=== PATIENT | male | born 1965 | race Caucasian/White ===

== ENCOUNTER 2016-06-16 10:19 | Outpatient (CLI) | payer OTHER | END 2016-06-16 10:20 | disposition home or self-care (01) | DX: J98.11 Atelectasis (principal) ==

== ENCOUNTER 2016-06-21 09:33 | Outpatient (CLI) | payer OTHER | END 2016-06-21 09:34 | disposition home or self-care (01) | DX: R06.09 Other forms of dyspnea (principal) ==

== ENCOUNTER 2017-01-20 10:03 | Outpatient (CLI) | payer OTHER ==
--- NOTE | 2017-01-20 22:27 | CONSULTATION NOTE ---
Palliative Care Consultation - Referral Referring Provider: Dr. 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 Has seen neurologist, franchise manager, and project manager finance regarding impending PEG placement. His father had ALS and at age 42, patient was 17 at the time, remembers much of the struggle, he in the hospital though was cared for at home for about 2 years. He was having difficulty with his breathing in March and was seen by PCP, told to loose weight and lost intentionally about 25 pounds. He continued to decline, saw a heel seat fitter machine who was very concerned and attempted to get him into a neurologist urgently. Unfortunately related to his desperation and progressive symptoms with dysphagia, neck weakness, more difficulty breathing he went to the [facility] ED, saw the neurologist and given Dx. His respiratory status continues to decline, feeling some improvement and support with new bipap at night, literally was not able to lay down as could not breath. He has dyspnea on exertion, and needs to pace self. 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 He is feeling overwhelmed as he has had to give up things of importance to him, riding motorcycle, and now declining ability to work. He has seen GI for PEG placement, feels can currently delay this, though of concern for anesthesia for procedure in the future. He has seen Danielle NG, and plan for follow up. Medical/Surgical History - Past Medical History Cardiovascular: reports: None Respiratory: reports: Other (recently obtained BiPAP has helped with sleep at night and breathng; was unable to lay flat without feeling he was suffocating) Neuro: reports: Other (new dx of ALS with bulbar symptoms) Endocrine/Autoimmune: reports: None GI: reports: Other (dysphagia; tires with chewing) : reports: None HEENT: reports: None Psych: reports: Depression, Anxiety Musculoskeletal: reports: Other (upper extremity weakness with ALS) Derm: reports: None MRSA Hx?: No - Substance History Use: Uses substance without health or social issues: NONE Social History - Living Situation Living arrangement: At home Living Situation: With family ( Corrine; to start caregiving training for employment, hoping to learn how to take care of him in future; have 4 year old granddaughter living with them, another daughter in [place] but with new baby) Support System: patient grew up in this community; many friends willing to help Family History - Family History Family History: Mother: Alive and Well, Father: (42 of ALS) Medications/Allergies - Medications Home Medications: Ambulatory Orders Medication Instructions Recorded Confirmed Diclofenac Sodium [Diclofenac 2 gm TOP QID PRN 01/27/17 01/27/17 Sodium] Riluzole 50 mg PO BID 01/27/17 01/27/17 - Allergies Allergies/Adverse Reactions: Allergies Allergy/AdvReac Type Severity Reaction Status Date / Time No Known Drug Allergies Allergy Verified 01/24/17 22:50 Review of Systems - Constitutional Constitutional: reports: Fatigue, Weight loss (206.4) - Eyes Eyes: denies: Blurred vision, Vision loss - Ears, Nose & Throat Ears, Nose & Throat: reports: Other (tires with chewing; dysphagia-has to eat slow; managing secretions currently). denies: Hearing loss - Cardiovascular Cariovascular: reports: Exertional dyspnea, Decr. exercise tolerance, Orthopnea (improved with bipap). denies: Chest pain - Respiratory Respiratory: reports: Orthopnea, SOB at rest, SOB with exertion. denies: Cough - Gastrointestinal Gastrointestinal: reports: Poor appetite (tiring to eat). denies: Constipation , Diarrhea - Genitourinary Genitourinary: denies: Incontinence - Musculoskeletal Musculoskeletal: reports: Stiffness, Limited range of motion - Integumentary Integumentary: reports: Dryness - Neurological Neurological: reports: General weakness, Focal weakness (neck/shoulder/upper arms;), Slurred speech (speech quiet) - Psychiatric Psychiatric: reports: Depression, Anxiety. denies: Suicidal - Endocrine Endocrine: reports: Other (neg hypothyroidism/diabetes) - Hematologic/Lymphatic Hematologic/Lymphatic: denies: Anemia - All Other Systems All Other Systems: reports: Reviewed and negative Physical Examination - Vital Signs Pulse Rate: 86 Respiratory Rate: 18 Blood Pressure: 140/99 - Physical Exam General Appearance: positive: Mild distress, Anxious Eyes Bilateral: positive: Normal inspection ENT: positive: Other (tongue with atrophied ALS pattern; poor rom) Neck: positive: Trachea midline, Other (struggling with posture of upright) Cardiovascular: positive: Regular rate & rhythm Abdomen: positive: Nml bowel sounds, No distention Skin: positive: No symptoms Extremities: positive: No pedal edema, Other (limited strength upper arms; fine motor impacted) Neurologic/Psychiatric: positive: Oriented x3, Weakness, Slurred/abnml speech, Depressed mood/affect Palliative Care - POLST Patient has POLST: No Pain: Pain worsening (bilateral should pain;) Drowsiness: Moderate (4-6) (moderate fatigue; able to only tolerate working 3/4 of day) Nausea: None Anxiety: Mild (1-3) (worried about how quickly things are changing) Dyspnea: Moderate (4-6) Anorexia: Mild (1-3) (very burdensome to chew) Insomnia: Sleep improved (with bipap) Feelings of wellbeing/Perceived Quality of Life: Worsening Performance Status: Patient having increased difficulty with dressing; fine motor; washing hair-any tasks that require over head reaching - Palliative Care Discussion: Patient aware of the seriousness of his illness; trying to weigh benefits and burdens of transitioning to disability with financial stressors pending. 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 attempting to try and put the "pieces" together to be able to pre- plan as much as possible, including learning to do hands on care. She is pursuing employment as a caregiver. Patient not wanting at end of life extended suffering; at this point weighting other than bipap respiratory support. His understanding was he did not need to urgently have tube places. Has had appointment with ST with recommendations, but noticing already more difficulty with meds/tiring to chew/keeping head positioned because of fatigue. Discussed the role of palliative care in support of advanced care planning; need to complete DPOA first, can continue to address as progresses. Also in the assistance of symptom management. Expressing feelings of grief and loss. Impression and Recommendations - Palliative Care Impression: This is a 51 year old recently diagnosed with ALS with bulbar symptoms, has experienced rapid progression, currently establishing care with various specialists. Palliative care to assist with advanced care planning and symptom management. Recommendations/Counseling Done: 1. Depression, was prescribed antidpressant by PCP, had not started yet. Counseling regarding threshold and indications/benefits for use. Counseling for normalizing feelings of grief and loss. Not interested in support group, but possible on line, will send resources. 2. ALS. Encouraged use of collar for energy conservation, has tended not to use. Has follow up with multiple specialists, trying to gather as much information for future decisions relating to disease progression and care, has been overwhelming and felt fragmented. 3. Advanced care planning, have documents; explained various components/forms. Recommended break it down with first on DPOA, would fall to but would be good to have "back up". Will have [facility] call , phone support and offer visit as needed. Set appointment in one month, will have more information and better able to focus on next steps. Time Spent: 75 minutes spent in counseling regarding living with serious illness, normalizing grief response and introduced advanced car eplanning.
== END 2017-01-20 10:04 | disposition home or self-care (01) ==
LOC: PC 10:03
PROVIDERS: ATTEND Internal Medicine
DX: Z51.5 Encounter for palliative care (principal); G12.21 Amyotrophic lateral sclerosis; F32.9 Major depressive disorder, single episode, unspecified; R53.83 Other fatigue; R13.10 Dysphagia, unspecified; R53.1 Weakness; R06.02 Shortness of breath
CPT/HCPCS: 99205

== ENCOUNTER 2017-03-03 08:31 | Outpatient (CLI) | payer OTHER ==
--- NOTE | 2017-03-03 17:42 | CONSULTATION NOTE ---
Palliative Care Follow Up - Referral Referring Provider: Dr. Yara Nam Time of Visit: [id number] Referral setting: [facility] [place] Referral Reason: ALS - Information Sources Records reviewed: Previous records reviewed History/Review of Systems obtained from: Patient, Family ( Corrine) Exam limitations: No limitations - History of Present Illness Update Brief HPI Update: This is a ariana 51-year-old gentleman recently diagnosed with ALS with bulbar symptoms, has been having a fairly rapid decline. His initial diagnosis was at the beginning of the year, he had presented with fatigue, shortness of breath, proximal upper extremity weakness and was put on a BiPAP at night around mid November. At that point in time he was already presenting with a FVC of 36% in the sitting position and 17% in the supine position. Of note he was having symptoms back in March 2016. Despite his father dying of ALS at age 42, his official diagnosis did not come to months later. I initially saw him over a month ago, he is feeling somewhat overwhelmed with all the specialists, our agreement had been to follow-up after he had seen next round of neurology, gastrenterology and patient accounts manager. He had canceled all those appointments this week. He has had continued decline, increased difficulty with holding his head up, increase orthopnea and difficulty with breathing at night, despite the BiPAP. He is still weight neutral, is having some difficulty with his oropharyngeal dysphagia. He is hoping to delay placement of a PEG as long as possible. He presents today with fairly high symptom burden. He reports increased pain in his neck as 7 out of 10. His fatigue at a 5 out of 10. He is feeling quite anxious and overwhelmed. He had not started his antidepressant, is feeling that really it is his situation, not his mood that is giving him problems. 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 Despite counseling his other visits, he is willing to discuss quality of life issues as well as prioritizing his medical needs. He also is concerned with some upper respiratory symptoms, is to see PCP after our visit. 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 He is recognizing though that he is going to need to stop working fairly soon. He does have supportive friends and family. He has a new grandbaby, that he is very excited about. His is quite supportive but feeling overwhelmed as well. Medications/Allergies - Medications Home Medications: Ambulatory Orders Medication Instructions Recorded Confirmed Diclofenac Sodium [Diclofenac 2 gm TOP QID PRN 01/27/17 01/27/17 Sodium] Riluzole 50 mg PO BID 01/27/17 01/27/17 HYDROcod/ACETAM 5/325 [[place] 5/325] 0.5 - 1 tab PO Q6HR PRN 03/03/17 03/03/17 Meloxicam 7.5 mg PO DAILY 03/03/17 03/03/17 Triamcinolone 0.1% Cream [Kenalog 1 applic TOP BID PRN 03/03/17 03/03/17 0.1% Cream] - Allergies Allergies/Adverse Reactions: Allergies Allergy/AdvReac Type Severity Reaction Status Date / Time No Known Drug Allergies Allergy Verified 01/24/17 22:50 Review of Systems - Constitutional Constitutional: reports: Fatigue, Other (staying weight neutral but "bored" with diet) - Eyes Eyes: denies: Vision loss - Ears, Nose & Throat Ears, Nose & Throat: reports: Postnasal drainage, Hoarseness, Other (excessive salivation). denies: Hearing loss - Cardiovascular Cardiovascular: reports: Decr. exercise tolerance. denies: Chest pain - Respiratory Respiratory: reports: Cough (reports clear; difficult cough effort), Orthopnea, SOB at rest, SOB with exertion. denies: Hemoptysis - Gastrointestinal Gastrointestinal: reports: Constipation, Rectal bleeding. denies: Nausea, Reflux/heartburn - Genitourinary Genitourinary: denies: Incontinence - Musculoskeletal Musculoskeletal: reports: Muscle pain, Muscle aches, Stiffness (neck), Muscle weakness - Integumentary Integumentary: reports: Rash (new rash with scattered lesions) - Neurological Neurological: reports: General weakness (upper extremity; difficult with raising arms only not fine motor; no lower extremity weakness) - Psychiatric Psychiatric: reports: Depression (did not start on antidepressant), Anxiety ( very anxious about impending decline; business stressors/finances) - Endocrine Endocrine: denies: Diabetes type 2, Hypothyroidism - Hematologic/Lymphatic Hematologic/Lymphatic: denies: Recurrent infections - All Other Systems All Other Systems: reports: Reviewed and negative Physical Exam - Vital Signs Pulse Rate: 86 Respiratory Rate: 20 O2 Saturation: 94 (RA at rest) Blood Pressure: 150/92 - Physical Exam General Appearance: positive: Alert, Mild distress Eyes Bilateral: positive: Normal inspection ENT: positive: Other (moist with excessive saliva) Neck: positive: Trachea midline, Other (fatigues even during exam of neck; has not been wearing brace) Cardiovascular: positive: Regular rate & rhythm Respiratory: positive: Diminished in bases, Other (difficult in taking deep breath; needing to use accessory muscles). negative: Wheezes, Rales, Rhonchi Abdomen: positive: Non-tender, Soft, Nml bowel sounds Skin: positive: Rash (scattered areas of 1-2 cm rash; not weeping; itching or s/ s infection;) Extremities: positive: No pedal edema Neurologic/Psychiatric: positive: Oriented x3, Mood/affect nml, Slurred/abnml speech (voice weak some change in quality;) Palliative Care - POLST Patient has POLST: No Pain: Pain worsening, Location (shoulders/neck;), Severity (7/10 worsening through day), Comment (has used advil with some relief) Tiredness/Fatigue: Moderate (4-6) Drowsiness/Sedation: None Nausea: None Depression: Moderate (4-6) Anxiety: Moderate (4-6) Dyspnea: Moderate (4-6) Anorexia: None Sleep: Variable sleep pattern Constipation: Yes, Unmanaged Feelings of wellbeing/Perceived Quality of Life: Fair, Worsening Performance Status: Patient with no difficulty ambulating, has increasing difficulty lifting his arms, dressing, no fine motor movement issues. He is getting more distressed as far as trying to work, he does have to crawl around, concerned about on-the- job accident. That showering is become challenging, is unable to put his arms up to wash his hair, and as having more difficulty adapting to his progressive loss of function. - Palliative Care Discussion: Patient is aware the seriousness of his illness, he is feeling somewhat overwhelmed by all the frequent visits, and chose not to follow-up this week. In review of his symptoms, we did discuss and prioritizing follow-up, he is describing increased difficulty with breathing, and may need BiPAP settings adjusted. Strongly suggested his first priority is getting to patient accounts manager. He currently is weight neutral, part of it is just figuring out food and fluids that are interesting, agreed he could delay remarketing manager. I did suggest though asking the patient accounts manager as far as the concern about anesthesiology in the future for PEG tube. I also strongly suggested that they reschedule his familial and genetic testing, he does have 2 daughters, and this information may not be available after his . I suggested this might be something of Legacy to assist his family in the future. His distress came also with the speech therapist suggesting he is going to need a communication tool and needs to start working on this. He does actually have quite a good visual having watched his father of this disease and felt this was too soon. Given patient's local relationship with Danielle Ivory, I suggested he follow-up with her when it felt more appropriate. He does have referral for OT as well, we discussed the challenges he is experiencing with dressing and meeting his ADLs, recommended he follow-up with OT after he gets back from his vacation. Counseling regarding adjustment to illness, feelings of grief and loss, and normalizing his current response to his situation. We did discuss though needing to prepare for the future. They are planning a vacation to the [employer], as part of the bucket list. He feels that he can refocus after they have met this goal. Did initiate conversation regarding advanced directives, is Corrine does feel that she would be able to make decisions on his behalf if needed. Introduce the role of POLST, though currently is not ready for a DNAR. We did discuss at some point at that transition time would reintroduce this. He is quite clear though he does not want ventilatory support for end of life, and nothing to prolong his suffering when his time comes. Impression and Recommendations - Palliative Care Impression: This is a 51-year-old gentleman with ALS and bulbar symptoms, is continued to have rapid progression. Patient presents today with increased pain, constipation, depression, and dyspnea. Palliative care to focus on symptom management as well as advanced care planning. Recommendations/Counseling Done: 1. Neck pain. This is most likely related to muscle tension and positioning. Has had some response to just plain Advil. We will go ahead and order meloxicam 7.5 mg daily to take with food, will increase to 15 mg if no response within week. Did also order hydrocodone 5 mg/acetaminophen 325 mg half to 1 tab every 6 hours as needed for severe breakthrough pain. Cautioned as far as constipation, sedation, and nausea. Did encourage use of neck brace, patient has been hesitant to use it, though this would provide some relief. 2. Constipation. Patient with intermittent constipation, having difficulty with straining, most likely related to his underlying disease process. Was instructed to initiate MiraLAX 17 g 1/2-1 capful daily with a goal of a regular soft bowel movement at least daily or every other day. Instructed on use of senna if patient having difficulty with infrequent bowel movements. 3. Rash. Patient with scattered patches of rash, no pustules, not painful but is slightly itchy. Will go ahead and start some triamcinolone 0.1% apply twice a day as needed until clear. 4. Dyspnea. Patient does need his BiPAP settings per his report adjusted. Did recommend patient follow-up with patient accounts manager, would be helpful to have FEV readings as well as recommendations for future PEG tube placement. Patient with cold symptoms, mostly post nasal, cough clear though poor effort, worried about progressive infection/pneumonia, no fever or chills. Recommended antihistamine and flonase, will see PCP. 5. Dysphagia. Patient does have some difficulty with pills, instructed to take with yogurt or pudding, may also crush. Has decreased his pill burden as far as his supplements. Currently remaining weight neutral, does have recipe book from speech therapist encouraged to try and increase variety. He is using supplemental protein drinks and tolerating without difficulty. 6. ALS. Patient is somewhat overwhelmed by the multidisciplinary team, frequent visits required, and distressed at pending decline. Did perform the ALS functional rating scale. Currently he scores out at 36. Will do this frequently on visits to marked decline. I did prioritize as far as follow-up patient accounts manager, neurologist, and remarketing manager as moves closer to needing PEG tube feeding. He is willing to accept PEG feeding at this point in time, but would like to delay implementation as long as possible. He would not like to be respiratory dependent on a ventilator. 5. Advanced care planning. Did recommend to finish DPOA, it does fall to . I did discuss quite frankly as he was no longer able to make decisions if his Corrine had the information that she needed. They do feel like they have had enough conversations, that she does understand his values, and would be able to speak appropriately for him. I did introduce the POLST, currently patient is not ready for DNA R, but did state quite clearly would not want ventilatory ventilatory support long-term but would consider it for short-term reversible process. We discussed weighing benefits and burdens as we move forward regarding these decisions, and is good to have continued on conversations and understand decisions facing them. This is where it is helpful to get her elicit information from their specialists as well as support for future decisions. Also recommended related to patient's decline to prioritize line up paperwork and affairs to transition to SSI Disability, and consider related to safety wrapping up business as worried about him hurting himself with his increasing deficits. Time Spent: 60 minutes with greater than 50% of this done in counseling regarding opioid use and safety, management of multidisciplinary team, making priorities, recommendations for transitioning to as SSI disability, and anticipatory guidance
== END 2017-03-03 08:32 | disposition home or self-care (01) ==
LOC: PC 08:31
PROVIDERS: ATTEND Nurse Practitioner Adult Health
DX: Z51.5 Encounter for palliative care (principal); G12.21 Amyotrophic lateral sclerosis; M54.2 Cervicalgia; K59.00 Constipation, unspecified; R21 Rash and other nonspecific skin eruption; R06.00 Dyspnea, unspecified; R13.10 Dysphagia, unspecified; Z79.891 Long term (current) use of opiate analgesic; Z79.899 Other long term (current) drug therapy; R06.02 Shortness of breath
CPT/HCPCS: 99215

== ENCOUNTER 2017-04-07 08:27 | Outpatient (CLI) | payer OTHER ==
--- NOTE | 2017-04-07 14:09 | CONSULTATION NOTE ---
Palliative Care Follow Up - Referral Referring Provider: Dr. Yara Nam Time of Visit: [id number] Referral setting: [facility] [place] Referral Reason: ALS - Information Sources Records reviewed: Previous records reviewed History/Review of Systems obtained from: Patient, Family ( Corrine present for visit) Exam limitations: No limitations - History of Present Illness Update Brief HPI Update: This is a airana 50-year-old gentleman who was diagnosed with ALS with bulbar symptoms, having a fairly rapid decline. His initial official diagnosis is beginning of this year, did have symptoms previous to this. Since her last meeting he has had 2 stop working, he is presenting with now significant increase upper extremity weakness needing support for dressing, and eating is becoming very problematic. He has so far remained weight neutral at 200 though he feels like he is spending all his time trying to address this need. He has noted some increase early ambulation difficulties, with some weakness in his legs. He has since we last meet also met with the lens grinder rough. His PFTs from 03/31/2017 declined only slightly from January with a FVC percent predictive of 40-34; an FEV1 from 42-36. They had at that point in time also initiated conversation regarding the physician orders for life-sustaining treatment or [facility] [address] form. He has also been feeling more depressed and initiated his antidepressant though is unhappy with the sexual dysfunction side effects. A discussion today focused on advanced care planning, is increasing symptom burden regarding pain, anxiety, depression, and fatigue. His psychosocial issues include needing to apply for Social Security disability, asked tablets new housing, and acknowledging his fairly rapid decline. He and his though did make it to the [facility] for their vacation, and found this very restorative and a positive over this last month. Social History - Living Situation Living arrangement: At home Living Situation: With spouse/s.o., With family (daughter recently moved home to be with the granddaughter age 5 who had been living with them. They are all living in an RV 5th wheel.) Support System: They are quite grateful they do have a lead on housing, so they will be able to move and until the beginning of May. It is on the same property and will have 2 bedrooms which will be of much help to them. Medications/Allergies - Medications Home Medications: Ambulatory Orders Medication Instructions Recorded Confirmed Diclofenac Sodium [Diclofenac 2 gm TOP QID PRN 01/27/17 04/07/17 Sodium] Riluzole 50 mg PO BID 01/27/17 04/07/17 HYDROcod/ACETAM 5/325 [[place] 5/325] 5 - 10 mg PO Q4HR PRN 03/03/17 04/07/17 Meloxicam 7.5 mg PO DAILY 03/03/17 04/07/17 Triamcinolone 0.1% Cream [Kenalog 1 applic TOP BID PRN 03/03/17 04/07/17 0.1% Cream] Sildenafil Citrate [Viagra] 25 mg PO PRN PRN 04/07/17 04/07/17 buPROPion [Wellbutrin Sr] 150 mg PO DAILY 04/07/17 04/07/17 - Allergies Allergies/Adverse Reactions: Allergies Allergy/AdvReac Type Severity Reaction Status Date / Time No Known Drug Allergies Allergy Verified 01/24/17 22:50 Review of Systems - Constitutional Constitutional: reports: Fatigue, Weakness, Night sweats, Weight stable (200 but with great effort for eating) - Eyes Eyes: reports: Vision loss, Corrective lenses - Ears, Nose & Throat Ears, Nose & Throat: reports: Other (increase difficulty with secretions pooling and managing; swallowing more laborious; no choking but tires easily;) - Cardiovascular Cardiovascular: reports: Exertional dyspnea, Decr. exercise tolerance, Orthopnea (got BIPAP settings adjusted with some improvement; to get "pillows" nasal vs mask for comfort) - Respiratory Respiratory: reports: SOB at rest, SOB with exertion, Other (needing to use accessory muscles for breathing finding very tiring) - Gastrointestinal Gastrointestinal: reports: Early satiety. denies: Constipation - Genitourinary Genitourinary: reports: Sexual dysfunction (requesting alternative antidepressant and support) - Musculoskeletal Musculoskeletal: reports: Muscle pain (mostly in neck area; has improved some with retiring from work), Stiffness, Muscle weakness (upper extremities cannot dress self; difficulty with bathing; cannot support utensils for eating) - Integumentary Integumentary: reports: Dryness - Neurological Neurological: reports: General weakness, Other (speech more difficult to understand) - Psychiatric Psychiatric: reports: Depression (feelings of loss and distress with needing to stop working; is identity;) - Hematologic/Lymphatic Hematologic/Lymphatic: denies: Recurrent infections - All Other Systems All Other Systems: reports: Reviewed and negative Physical Exam - Vital Signs Pulse Rate: 72 Respiratory Rate: 16 O2 Saturation: 93 Blood Pressure: 127/68 - Physical Exam General Appearance: positive: Mild distress, Anxious Eyes Bilateral: positive: Normal inspection ENT: positive: ENT inspection nml Neck: positive: Trachea midline, Stiff neck Cardiovascular: positive: Regular rate & rhythm Respiratory: positive: Diminished in bases, Other (using accessory muscles to deep breath). negative: Wheezes, Rales, Rhonchi Abdomen: positive: Soft Skin: positive: No symptoms Extremities: positive: No pedal edema, Other (unable to lift arms off chair arms ; small amount lateral abduction sustained movement noted; reports starting some lower extremity weakness). negative: Full ROM Neurologic/Psychiatric: positive: Oriented x3, Weakness, Depressed mood/affect, Other (voice quiet). negative: Motor nml Palliative Care - POLST Patient has POLST: Yes POLST Status: DNR, Limited Interventions (antibiotics if life can be prolonged; TF when need and cannot swallow) Pain: Pain improved, Location (neck and shoulder area), Comment (hydrocodone/ apap helps "some" not using more than once a day not needing with less activity) Tiredness/Fatigue: Severe (7-10) Drowsiness/Sedation: None Nausea: None Depression: Severe (7-10) Anxiety: Severe (7-10) Dyspnea: Severe (7-10) Anorexia: None Sleep: Variable sleep pattern Constipation: Yes, Managed Feelings of wellbeing/Perceived Quality of Life: Fair, Worsening Performance Status: Patient having increasing difficulties with dressing, Cannot lift her maneuver his arms to be able to put on shirts and/or codes. He is having difficulty lifting and feeding himself because of his lack of arm strength. He does need assistance with showering as well and washing his hair. His energy and fatigue now are impacting his ability to manage his day-to-day activities, and has had to stop working both because of energy and safety concerns. 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 - Palliative Care Discussion: There was a fairly long extensive conversation regarding advanced care planning , he had initiated this with his lens grinder rough including the choice of DNAR and limited interventions. He had not made any decisions at that point in time regarding his tube feedings, he is very depressed and distressed with the upcoming decline in his current loss of his identity that is very much connected with his work. In conversation we reviewed the benefits and burdens of moving forward with a PEG feeding tube. Given the patient's recent speech therapy evaluation and swallow eval that shows so he is not aspirating he is having pooled secretion in his epiglottis I suspect should move forward on this sooner than later. They were somewhat frustrated with information they received from the lens grinder rough, I did agree to further define this for them. In trying to decide though "when" to get the PEG tube regarding concerns for anethesiology.He is having more trouble with pills, this is concern and particularly in looking forward for comfort management. I suspect the changes are happening fairly quickly and are somewhat overwhelming, particularly to add this level of support. I did share though that in the context of his longer term goals, which is to have a peaceful and respectful at home, we are going to need away to support him both with medications and until he is ready to transition to end-of-life for food and fluids. At this point in time he is not wanting to consider ventilatory support, he has found it much more comfortable though with the improved BiPAP settings. Impression and Recommendations - Palliative Care Impression: This is a 51-year-old gentleman with ALS who continues to decline, he is showing increased upper extremity weakness and bulbar symptoms increased fatigue and difficulty with eating, but he remains weight neutral this is been somewhat overwhelming to keep up with calories and fluids. He is having increased trouble with swallowing medications though denies significant choking. He is starting to feel some lower extremity weakness. The symptom burden remains fairly high with pain in his neck, severe fatigue, increasing depression, anxiety, and perceived worsening quality of life. His goal is to focus on managing his symptoms and stain as independent as possible for as long as possible, as well preparing for his end of life. Recommendations/Counseling Done: 1. Neck pain, multifactorial in origin most likely related to muscle tension and positioning. He is taking the meloxicam 7.5 mg daily with some relief. For intermittent severe pain he has used the hydrocodone/acetaminophen been 5 mg /3 and 25 mg but perceives very little relief. His pain is improved since he has stopped working, and has not really used the neck brace. Reviewed the principles of pain management again, reviewing most likely he needs a higher dose of the hydrocodone to get relief, I did provide prescription for liquid with encouragement to titrate to comfort. At this point in time he still only needing intermittently will continue to monitor. 2. Constipation. He is using MiraLAX with improvement. 3. Depression, multifactorial including grief and loss of employment. He did initiate the citalopram with some improvement of his depressive symptoms but disliked that this the erectile dysfunctional component of this. Prescribed Wellbutrin which has less side effects for rectal dysfunction, and added prescription of Viagra with instructions. Reviewed the need to continue with intimacy for as long as possible given this is an important part of the relationship. 4. Functional decline. Initiated conversation again regarding speech and occupational therapy, Corrine would really like for him to try and see if there is anything to improve his quality of life are suggestions or equipment. Patient remains reluctant in the context of "what are the going to be able to do for me" as far as spending the time and investment in something that is not going to be of help. Compromise was made that I would contact the speech and occupational therapist, specifically asking what approaches and things that might be of help and then he can decide. Message left both are Danielle Ivory regarding above as well as trying to identify he may see him outpatient for occupational therapy. 5. Dysphasia. Patient is at high risk for aspiration, we did discuss what this risk was and why it was so. Patient with some understanding of his illness , but does need some interpretation of medical jargon. Expressed my concern regarding difficulty swallowing pills, effort and fatigue with eating, and agreed to follow-up with lens grinder rough regarding recommendations for PEG tube and anesthesiology. 6. Financial stressors. Patient feeling overwhelmed and not even knowing where to start for SSI disability, they do understand that it is a process but would like some direction. Will recheck out to our social workers and see if any coaching or enlightenment can be provided. Given his disease status they should be able to get it in a fairly short period of time, is just gathering the information. 7. Advanced care planning. Patient and had multiple questions again about the POLST form and implications regarding this. They had not brought the previous copy, we did redo this to include his written goals which include focus on quality treat reversible conditions spend time with family and end-of- life a comfortable respectful at home with hospice. We also spent quite a bit of time weighing benefits and burdens of tube feedings as well as issue of antibiotics particularly end of life. 8. ALS. 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 He has followed up with the lens grinder rough, most likely will have him follow-up with chucker. Unfortunately for genetic counseling that person is no longer available, will need to go out of network. There is a clinic at [facility] I will get the appropriate information. We also discussed some of the clinical trial studies he has access to, he may follow-up on some of the more simple ones. Also address his questions regarding medication and supplements, and long -term goals regarding this. He currently has put them all on hold, because of swallowing issues. Time Spent: 65 minutes with greater than 50% of this done in counseling and coordination of care regarding patient's complexity of multiple issues, symptom management, advanced care planning and anticipatory guidance.
== END 2017-04-07 08:28 | disposition home or self-care (01) ==
LOC: PC 08:27
PROVIDERS: ATTEND Nurse Practitioner Adult Health
DX: Z51.5 Encounter for palliative care (principal); G12.21 Amyotrophic lateral sclerosis; F32.9 Major depressive disorder, single episode, unspecified; R13.10 Dysphagia, unspecified; R53.1 Weakness; R53.83 Other fatigue; F41.9 Anxiety disorder, unspecified; K59.00 Constipation, unspecified; R37 Sexual dysfunction, unspecified; T43.295A Adverse effect of other antidepressants, initial encounter; Z66 Do not resuscitate; M50.90 Cervical disc disorder, unspecified, unspecified cervical region
CPT/HCPCS: 99215

== ENCOUNTER 2017-05-17 09:32 | Outpatient (CLI) | payer MEDICAID ==
--- NOTE | 2017-05-17 13:45 | CONSULTATION NOTE ---
Palliative Care Follow Up - Referral Referring Provider: Dr. 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 His initial diagnosis is beginning the year, he is currently on BiPAP at night. Patient does report some increased changes and noted decline, with more difficulty with turning and positioning in bed, is wearing CPAP through the night, increased secretions noted but mostly at nighttime but managing., Is experiencing some increased difficulty with swallowing, and also having more difficulty getting him from kneeling to standing. He also is needing more assistance with his ADLs. These and review are quite overwhelming to him.Patient also having increased trouble meeting nutritional needs, currently has PEG tube scheduled for beginning of June, remains fairly resistant to this.Goal of palliative care is to continue to meet and address quality of life issues as well as anticipatory guidance. ALS Functional Rating Scale-Revised with same scoring of 31/48 from last visit. Social History - Living Situation Living arrangement: At home Living Situation: With spouse/s.o. Medications/Allergies - Medications Home Medications: Ambulatory Orders Medication Instructions Recorded Confirmed Riluzole 50 mg PO BID 01/27/17 04/07/17 HYDROcod/ACETAM 5/325 [[place] 5/325] 5 - 10 mg PO Q4HR PRN 03/03/17 04/07/17 Meloxicam 7.5 mg PO DAILY 03/03/17 04/07/17 Triamcinolone 0.1% Cream [Kenalog 1 applic TOP BID PRN 03/03/17 04/07/17 0.1% Cream] Sildenafil Citrate [Viagra] 100 mg PO PRN PRN 04/07/17 04/07/17 buPROPion [Wellbutrin Sr] 150 mg PO DAILY 04/07/17 04/07/17 Multivitamin with Minerals 1 unit PO DAILY 05/17/17 05/17/17 [Biosupp] - Allergies Allergies/Adverse Reactions: Allergies Allergy/AdvReac Type Severity Reaction Status Date / Time No Known Drug Allergies Allergy Verified 01/24/17 22:50 Review of Systems - Constitutional Constitutional: reports: Fatigue, Weight loss (reports 190; 5-10 pounds last few months) - Eyes Eyes: reports: Corrective lenses - Ears, Nose & Throat Ears, Nose & Throat: reports: Other (oral secretions manageable; some excessive drooling noted at night; reports some gagging/coughing at times feels like food catches on "shelf" at back of throat; to meet with Speech Therapist this Tuesday. ) - Cardiovascular Cardiovascular: reports: Exertional dyspnea, Decr. exercise tolerance - Respiratory Respiratory: reports: SOB at rest, SOB with exertion. denies: Cough - Gastrointestinal Gastrointestinal: reports: Other (effort with eating significant; has modified textures but admits most likely not getting enough fluids). denies: Constipation, Reflux/heartburn - Genitourinary Genitourinary: reports: Sexual dysfunction (viagra at 100 mg working;) - Musculoskeletal Musculoskeletal: reports: Muscle aches (bilateral across shoulders; difficulty with positioning in bed), Limited range of motion, Muscle weakness (bilateral arm weakness; able to lift right arm to shoulder level; left only to just above hip; noting increase lower extremity weakness; more difficult walking up hills) - Integumentary Integumentary: reports: Rash (diffuse with dry patches; not itching; skin dry all over; takes hot showers at least daily) - Neurological Neurological: reports: General weakness, Focal weakness, Other (speech notably softer and with more effort) - Psychiatric Psychiatric: reports: Depression, Anxiety - Endocrine Endocrine: denies: Diabetes type 2 - Hematologic/Lymphatic Hematologic/Lymphatic: denies: Anemia, Recurrent infections - All Other Systems All Other Systems: reports: Reviewed and negative Physical Exam - Vital Signs Pulse Rate: 73 Respiratory Rate: 18 O2 Saturation: 95 (ra @ rest) Blood Pressure: 124/83 - Physical Exam General Appearance: positive: No acute distress Eyes Bilateral: positive: Normal inspection ENT: positive: Other (tongue with white coating; not patchy or sore as in candidiasis) Neck: positive: Trachea midline Cardiovascular: positive: Regular rate & rhythm Respiratory: positive: Other (difficulty taking a deep breath; using accessory muscles with effort). 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 When asked if patient suicidal, does report feels like giving up and suicide at times but reports he would not act on it. Has experienced many losses, including with increased dependence.) Anxiety: Mild (1-3) Dyspnea: Moderate (4-6) Anorexia: Weight loss (more related to effort vs lack of appetitie) Sleep: Variable sleep pattern (I difficulty as having more trouble repositioning in bed with her extremity ongoing decline.) Constipation: No, Managed Feelings of wellbeing/Perceived Quality of Life: Fair, Acceptable, Worsening Performance Status: Since last met, is having more difficulty feeding himself, this has more to bring in food to mouth. This impacts his ability to get adequate fluid intake, I am getting the glass up to be able to use a straw. is needing to assist with bathing daily now as well as dressing. Unfortunately with insurance transition had to cancel OT PT evaluation, is looking for a new referral source. Patient does report less activity tolerance. Has had one fall though this is related mostly to the ice and not balance or weakness. - Palliative Care Discussion: Much of her palliative care discussion today was weighted around the pending PEG tube placement. Patient continues to be quite adverse to receiving it. Most of it is aesthetic and also emotional having a tube hanging out of him. His and myself rightly are concerned though about him being able to meet his fluid and caloric needs currently. He is also having more difficulty swallowing medications. I did reiterate what he has shared last time which that taking most of the day and effort to eat was somewhat overwhelming. I am also concerned regarding his respiratory status as far as waiting too long for anesthesia. In the context of trying to move into a home from fifth wheel, he is feeling much sadness and distress at the burden he is putting on his , he is always been "a doer". They have had friends and family step up, but there is a never ending list. They have started Social Security disability. In our setting to move towards jeanne as well. For his 52th birthday, 1 of his friends did give him with a week to [place]. This was somewhat of a high light for him though recognizing he may not last out the year. They are focusing just on day-to-day survival, patient still presents with wonderful sense of humor, and quite willing to discuss his current difficulties. Impression and Recommendations - Palliative Care Impression: This is a 52-year-old gentleman with ALS and bulbar symptoms, continue to have rapid functional decline. Today he presents with increased upper and lower extremity weakness, struggling with decision around PEG tube timing, and depressive symptoms. Palliative care to focus on symptom management and quality of life issues, counseling and anticipatory guidance provided Recommendations/Counseling Done: 1. Dysphagia. Patient continued to have difficulty with pills currently does present with weight loss, is working with different textures. He is scheduled to see speech therapist this Tuesday. Has been using protein drinks and tolerating without difficulty. Continues to struggle with weighing the benefits and burdens of PEG tube placement. feeling like patient is not getting adequate fluids and/or nutrition, decision is emotionally fraught as well as another concession in patient's perception of the disease progression.Counseling done and emotional support provided regarding reviewing benefits and burdens of both decisions. Agreement to meet in 2 weeks, needs to give 1 week notice for cancellation, currently scheduled for 06/09/2017. 2. Neck pain. Patient pain is related to muscle tension, positioning, and increased weakness. He is doing fairly well on the meloxicam 7.5 mg daily, has not needed the hydrocodone 5 mg/acetaminophen 325 mg more than once or twice a week. His severe pain has improved as he is no longer working. 3. Constipation. Patient is titrating might MiraLAX as instructed with regular bowel movements. 4. Rash. This is somewhat diffuse with scattered patch patches no pustules. Has not used the triamcinolone secondary to perception it is in multiple places. Discussed bathing habits, does take hot shower. Will have patient moisturize with CERAVE moisturizing lotion after bathing to see if this improves it. He is not having any pruritus or symptoms curently from it. 5.ALS. Patient is presenting with ongoing decline functionally. He had PT and OT set up prior to changing insurances. He is working with his new PCP and finding resources that accept [employer] insurance. He is unable to dress, is having more difficulty feeding himself, and interested in the restorative program. Also looking at hiring assistance, is trying to work, they have done Social Security disability application. Patient recognizing progression of disease, is somewhat distraught with this. Counseling regarding safety, I did recommend [employer]. Referral made, Amanda will contact them directly. 5. Depression. Patient tolerating current antidepressant Wellbutrin 150 mg daily. Does report ran out this last week, and review of symptoms does appear he is having some withdrawal, counseling and instruction regarding side effects of abruptly stopping antidepressants. They will pick pack worker on way home. Did discuss about feelings of suicidality. Patient reports he would not "take the easy way out" review this to his family but did normalize his feelings of distress. Requested he reached out if these became overwhelming or needed further assistance. Counseling regarding intimacy issues; Margo called in. 6 Advanced care planning [address] is done in in place. Patient quite clear on goals, at this point in time he is not wanting ventilatory support for long-term , and end-of-life would like to do hospice at home if possible.There are many nuances as move forward, anticipatory guidance reviewed in the context of short term goals and decisions. Time Spent: 60nminutes with greater than 50% of this done in counseling regarding depression opioid management pain management anticipatory guidance and counseling regarding weighing benefits and burdens of tube feeding and review of goals of care
== END 2017-05-17 09:33 | disposition home or self-care (01) ==
LOC: PC 09:32
PROVIDERS: ATTEND Nurse Practitioner Adult Health
DX: Z51.5 Encounter for palliative care (principal); R13.10 Dysphagia, unspecified; M54.2 Cervicalgia; K59.00 Constipation, unspecified; R21 Rash and other nonspecific skin eruption; G12.21 Amyotrophic lateral sclerosis; F32.9 Major depressive disorder, single episode, unspecified; R53.83 Other fatigue; R63.4 Abnormal weight loss; R06.09 Other forms of dyspnea; M79.1 Myalgia; M62.81 Muscle weakness (generalized); F41.9 Anxiety disorder, unspecified; Z66 Do not resuscitate
CPT/HCPCS: 99215

== ENCOUNTER 2017-06-13 10:39 | Outpatient (CLI) | payer MEDICAID ==
--- NOTE | 2017-06-13 17:56 | CONSULTATION NOTE ---
Palliative Care Follow Up - Referral Referring Provider: Dr. Tess Lopez Time of Visit: [phone] Referral setting: [facility] [place] Referral Reason: ALS - Information Sources Records reviewed: Previous records reviewed History/Review of Systems obtained from: Patient, Family ( Corrine) Exam limitations: No limitations - History of Present Illness Update Brief HPI Update: This is a ariana 52-year-old gentleman diagnosed with ALS with bulbar symptoms and has had a fairly consistent ongoing decline. He is currently on BiPAP at night, has noted increased upper extremity weakness, some increase with balance secondary to trunk instability, has continued to decline placement of the PEG tube, though eating and drinking is becoming more difficult. Particularly taking pills. Patient appropriately expressing sadness and grief regarding multiple losses was encouraged with physical therapy appointment has found that helpful as well as looking forward to OT next week. Patient does have breathlessness with minimal exertion, did have some cold symptoms that included postnasal drainage, this was complicated as he does have difficulty with cough. He feels like he is recovering okay. He does have some mild bilateral shoulder pain, this is most exacerbated bedtime and trying to reposition himself and dad. He is having more difficulty with neck stability, and overall fatigue.His ALS functional rating scale last visit on 05/17 was 31/48 today it is 27/48. Social History - Living Situation Living arrangement: At home Living Situation: With spouse/s.o., With family Support System: His Corrine has finished her caregiving training course, she felt this is really helpful in preparation to care for him. She is feeling somewhat more confident. She has had evaluation through the senior center and [facility], she does qualify for 12 hours per week of assistance with him. He remains somewhat resistant to this. They do have a 5-year-old granddaughter that lives with them , I believe their mother is back in the picture as well. I Corrine will be taking care of their new baby granddaughter and both he and she are looking forward to this little bundle enjoy being in their lives more consistently. Medications/Allergies - Medications Home Medications: Ambulatory Orders Medication Instructions Recorded Confirmed Riluzole 50 mg PO BID 01/27/17 06/13/17 HYDROcod/ACETAM 5/325 [[place] 5/325] 5 - 10 mg PO Q4HR PRN 03/03/17 06/13/17 Meloxicam 7.5 mg PO DAILY 03/03/17 06/13/17 Sildenafil Citrate [Viagra] 100 mg PO PRN PRN 04/07/17 06/13/17 buPROPion [Wellbutrin Sr] 150 mg PO DAILY 04/07/17 06/13/17 Polyethylene Glycol 3350 [Miralax] 17 gm PO PRN PRN 06/13/17 06/13/17 - Allergies Allergies/Adverse Reactions: Allergies Allergy/AdvReac Type Severity Reaction Status Date / Time No Known Drug Allergies Allergy Verified 01/24/17 22:50 Review of Systems - Constitutional Constitutional: reports: Fatigue, Weakness, Weight stable (187.4 with clothe) - Eyes Eyes: reports: Vision loss, Corrective lenses - Ears, Nose & Throat Ears, Nose & Throat: reports: Postnasal drainage (improved; had cold symptoms), Other (saliva management about the same) - Cardiovascular Cardiovascular: reports: Exertional dyspnea, Decr. exercise tolerance - Respiratory Respiratory: reports: SOB with exertion - Gastrointestinal Gastrointestinal: reports: Early satiety, Other (slow eating; difficult staying hydrated). denies: Constipation, Nausea - Genitourinary Genitourinary: denies: Incontinence - Musculoskeletal Musculoskeletal: reports: Stiffness, Muscle weakness (unable to raise arms, worsening; some lower extremity weakness more trunk instablity and balance issues) - Integumentary Integumentary: reports: Rash (improved with use of Cerave), Dryness - Neurological Neurological: reports: General weakness, Other (speech much more quiet but clear ) - Psychiatric Psychiatric: reports: Depression - Endocrine Endocrine: denies: Diabetes type 2, Hypothyroidism - Hematologic/Lymphatic Hematologic/Lymphatic: reports: Recurrent infections (recent viral nasal congestion, now clearing) - All Other Systems All Other Systems: reports: Reviewed and negative Physical Exam - Vital Signs Pulse Rate: 87 Respiratory Rate: 18 O2 Saturation: 96 (rs@ rest) Blood Pressure: 124/88 - Physical Exam General Appearance: positive: No acute distress Eyes Bilateral: positive: Normal inspection ENT: positive: No signs of dehydration Neck: positive: Trachea midline, Stiff neck Cardiovascular: positive: Regular rate & rhythm Respiratory: positive: Breath sounds nml Abdomen: positive: Non-tender, Soft, Nml bowel sounds Skin: positive: Pallor, Dryness Extremities: positive: No pedal edema, Other (limited rom demonstarted; getting sitting from standing using trunk swinging) Neurologic/Psychiatric: positive: Oriented x3, Weakness, Slurred/abnml speech Palliative Care - POLST Patient has POLST: Yes POLST Status: DNR, Selective Treatment Pain: Pain unchanged, Location (bilateral shoulder pain; worse at night with positioning; offered hospital bed for positioning, declined at this time. Using the Meloxicam daily; only needing hydrocodone 1-2 x a week) Tiredness/Fatigue: Moderate (4-6) Nausea: None Depression: Moderate (4-6) Anxiety: Mild (1-3) Dyspnea: Moderate (4-6) Anorexia: Weight loss (187.4 fully clothed) Sleep: Variable sleep pattern Constipation: Yes, Managed Feelings of wellbeing/Perceived Quality of Life: Fair, Worsening Performance Status: Patient needing assistance with dressing particular upper extremity. He is having trouble with toileting and able to pull up or manage his pants. He is dependent on his for bathing. He is able to ambulate short distances without assistance. He is having more difficulty getting from sitting to standing with trunk instability. He feels like his legs are still quite strong but his balance is poor. He is needing assistance with cutting up her food, he has worked out some quirky ways of getting food to his mouth, he is looking forward to meeting with the OT. - Palliative Care Discussion: Discussion centered just on his overall decline, anticipatory grief and current loss is experiencing, now household has no income. Hoping to get Social Security disability going, unclear where they are in the process. He reports his mother has come to visit, had family around for the holidays, this is been quite supportive. They finally got into their house which has decreased her stress dramatically, though this is taken a lot of work in his frustration and not being able to participate are continue to help. He remains somewhat resistant to the PEG tube though is aware it is coming. He was intimately involved in the care of his father over the last couple years of his decline and with ALS, reports his mother is finding this quite difficult and trying to visit his much as possible. They are following up on a clinical trial for stem cell study, there was one caveat that he did not meet as far as criteria, encouraged to call and talk to the employment coordinator as sometimes there are more liberal guidelines we may not be aware of.[address] completed, continued to weigh benefits and burdens in the context of his current trajectory as well as quality of life. Impression and Recommendations - Palliative Care Impression: This is a ariana 52-year-old gentleman with ALS and bulbar systems, continue to have functional decline. He is still not had his PEG tube placed, continues to find this very difficult as far as making a final decision. Currently he is weight neutral and maintaining his fluid status, though his remains concerned. Palliative care to focus on symptom management quality of life issues providing counseling and anticipatory guidance Recommendations/Counseling Done: 1. Dysphasia. Patient continues have difficulty with pills, had seen speech therapist who felt like he could eat out another few weeks without the PEG tube. He continues to struggle regarding PEG tube placement, did encourage to make an appointment in the next 4-6 weeks. Problem solving done around pill swallowing, and reviewed my concerns about risk for aspiration pneumonia. Inst to increase protien drink to TID 2 depression. Patient currently tolerating antidepressant Wellbutrin 150 mg daily. Is expressing feelings of grief and loss, and concerned about impending decline. Counseling to normalize and process feelings regarding this. 3. ALS. Patient is presenting with ongoing functional decline. He has benefited from PT and is looking forward to OT. We did discuss some problem solving around home exercise program, will follow up on suggestions. Disabled parking permit as well as very pass paperwork filled out and faxed. 4. Rash. This is improved with the [address] moisturizing lotion, has not worsened and has had some improvement. 5. Constipation currently controlled titrating MiraLAX appropriately 6. Neck pain. Patient pain is related to muscle tension, having increased difficulty with positioning at bedtime, did discuss hospital bed at this point has declined. Did discuss sleeping in the recliner which would just be more supportive of his neck and back. Will let me know when ready for equipment needs. 7 caregiver fatigue. Patient is quite resistant to having filter tank tender helper head, though patient does need quite a bit assistance with personal care. Counseling and problem solving regarding how might be able to use his support to decrease stress on Corrine, will continue to work with patient and family. 8.Advanced care planning LE[address] is done in in place, patient remains quite clear on goals at this time is not wanting ventilatory support for long-term and end-of-life would like to do hospice at home if possible. Continue to weigh benefits and burdens his decisions come his way, both he and his are appropriately anxious regarding impending decline. Time Spent: 5 minutes with greater than 50% of this done in counseling regarding management of symptoms, depression, problem solving around dysphasia and pill taking, coordination with resources for [facility], [employer], and [employer].
== END 2017-06-13 10:40 | disposition home or self-care (01) ==
LOC: PC 10:39
PROVIDERS: ATTEND Nurse Practitioner Adult Health
DX: Z51.5 Encounter for palliative care (principal); R47.02 Dysphasia; F32.9 Major depressive disorder, single episode, unspecified; G12.21 Amyotrophic lateral sclerosis; R21 Rash and other nonspecific skin eruption; K59.00 Constipation, unspecified; M54.2 Cervicalgia; R06.00 Dyspnea, unspecified; M25.512 Pain in left shoulder; M25.511 Pain in right shoulder; M62.81 Muscle weakness (generalized); Z79.1 Long term (current) use of non-steroidal anti-inflammatories (NSAID); Z79.891 Long term (current) use of opiate analgesic; Z66 Do not resuscitate
CPT/HCPCS: 99215

== ENCOUNTER 2017-07-14 11:14 | Outpatient (CLI) | payer MEDICAID ==
--- NOTE | 2017-07-14 17:46 | CONSULTATION NOTE ---
Palliative Care Follow Up - Referral Referring Provider: Dr. Tess Lopez Time of Visit: [id number] Referral setting: [facility] Referral Reason: ALS - Information Sources Records reviewed: Previous records reviewed History/Review of Systems obtained from: Patient, Family (Corrine , present for visit) Exam limitations: No limitations - History of Present Illness Update Brief HPI Update: This is a ariana 52-year-old gentleman diagnosed with ALS with bulbar symptoms and has on ongoing decline. He is currently on BiPAP continuously at night, is seen the tool design drafter to adjust settings next week, has noted some increased heaviness. Denies breathlessness at rest. Most pronounced has been his decline in upper extremity weakness and inability to balance his neck, He remains quite resistant to wearing neck support, as well as looking at getting a G-tube. He does remain fairly weight neutral around 181.4, but is most likely not getting adequate fluids. He admits to increasing depression, increased difficulty with balance related to his trunk instability, and significant financial stressors as waiting for disability to kick in. Patient receives palliative care support for her symptoms, emotional distress, and coordination of care.His ALS functional rating scale on visit 05/17/2017 was 31/ 48, on 06/13/1826/over 48; and today it is 25/48. Social History - Living Situation Living arrangement: At home Living Situation: With family (His Corrine is his main caregiver, she oversees his medical appointments as well as provides most of the conversation as this is quite fatiguing for him. Though he is quite engaged and conversant and our visits, he does tend to withdraw. They do have 5-year-old granddaughter who lives with them, as well as provide support for the new grandbaby of a few months Rand, they are providing childcare as a means of financial support as well.They have moved into the house versus the trailer, this has made things easier.) Medications/Allergies - Medications Home Medications: Ambulatory Orders Medication Instructions Recorded Confirmed Riluzole 50 mg PO BID 01/27/17 07/15/17 HYDROcod/ACETAM 5/325 [[place] 5/325] 5 - 10 mg PO Q4HR PRN 03/03/17 07/15/17 Meloxicam 7.5 mg PO DAILY 03/03/17 07/15/17 Sildenafil Citrate [Viagra] 100 mg PO PRN PRN 11/02/17 02/09/18 buPROPion [Wellbutrin Sr] 150 mg PO DAILY 04/07/17 07/15/17 Polyethylene Glycol 3350 [Miralax] 17 gm PO PRN PRN 06/13/17 07/15/17 - Allergies Allergies/Adverse Reactions: Allergies Allergy/AdvReac Type Severity Reaction Status Date / Time No Known Drug Allergies Allergy Verified 01/24/17 22:50 Review of Systems - Constitutional Constitutional: reports: Fatigue, Weight loss (6 pounds since last seen 181.4) - Eyes Eyes: reports: Vision loss, Corrective lenses - Ears, Nose & Throat Ears, Nose & Throat: reports: Other (oral secretions currently managing with very little drooling) - Cardiovascular Cardiovascular: reports: Decr. exercise tolerance - Respiratory Respiratory: reports: SOB with exertion, Other (uses BiPap at night). denies: SOB at rest - Gastrointestinal Gastrointestinal: reports: Early satiety, Other (difficulty eating/drinking more problems with water). denies: Constipation - Genitourinary Genitourinary: denies: Incontinence - Musculoskeletal Musculoskeletal: reports: Limited range of motion, Muscle weakness (increase upper extremity weakness; poor neck stabililty; more difficulty with balance; no falls) - Neurological Neurological: reports: Other (speech more difficult to understand) - Psychiatric Psychiatric: reports: Depression (worsening as disease has progressed; feeling overwhelmed with all the losses) - Hematologic/Lymphatic Hematologic/Lymphatic: denies: Recurrent infections - All Other Systems All Other Systems: reports: Reviewed and negative Physical Exam - Vital Signs Temperature: 97.6 C Pulse Rate: 86 Respiratory Rate: 18 Blood Pressure: 147/94 - Physical Exam General Appearance: positive: No acute distress, Alert Eyes Bilateral: positive: Normal inspection ENT: positive: Other (moist secretions; no appearance of difficulty managing during visit) Neck: positive: Other (noted effort to keep stable; appeared fatigued by time finished appointment) Cardiovascular: positive: Regular rate & rhythm Respiratory: positive: Diminished in bases, Other (difficulty taking deep breath ; using accessory muscles). negative: Wheezes, Rales, Rhonchi Abdomen: positive: Soft Skin: positive: Pallor Extremities: positive: Other (unable to raise arms past hips; gait normal but using some trunk swaying) Neurologic/Psychiatric: positive: Oriented x3, Depressed mood/affect Palliative Care - POLST Patient has POLST: Yes POLST Status: DNR, Selective Treatment Pain: Pain improved, Location (mostly bilateral shoulder pain when trying to move in bed) Tiredness/Fatigue: Moderate (4-6) Drowsiness/Sedation: Mild (1-3) Nausea: None Depression: Severe (7-10) Anxiety: Mild (1-3) Dyspnea: Mild (1-3) Anorexia: Mild (1-3) (more related to time and effort it takes to eat/drink), Weight loss Sleep: Sleeps poorly (difficulty with bed mobilty) Constipation: No Feelings of wellbeing/Perceived Quality of Life: Fair, Worsening Performance Status: Patient requiring increased assistance with dressing, toileting, increased difficulty with bed mobility. Still managing to feed self though needs food cut up. Has been working with physical therapy to try and maintain functional status as long as possible, also provides massage in the neck with relief. Did see OT, did not find this of help. Had received home health referral, patient currently does not meet the criteria for homebound status, is unable to make contact as far as willingness to let patient use bike at club. Put him still at a PPS of 70% - Palliative Care Discussion: Discussed at length stressors and changes over the last month, continues to deteriorate. They have finished Social Security disability application, though financially will not be receiving support until October. And follow-up on their genetic testing, they found no obvious markers, this is of surprise though, as his father had ALS in his early 40s, he was in the , wondering about environmental exposure. Patient expressing feelings of loss and grief as losing his independence, presents with caregiver fatigue, they have finished the jeanne application, she is hoping to at least get a shift on Tuesday to give her a break. Discussed the threshold for tube feeding support, this remains a huge step for patient, most likely going to wait until no longer can eat any food. Impression and Recommendations - Palliative Care Impression: This is a ariana 52-year-old gentleman with ALS and bulbar symptoms, continues to have functional decline. He continues to struggle with PEG tube placement, is having some increased difficulty meeting hydration needs, has had 6 pound weight loss over the month, and remains with high symptom burden of fatigue, depression, and dyspnea. Palliative care to continue to focus on symptom management and quality of life issues providing counseling and anticipatory guidance Recommendations/Counseling Done: 1. Dysphagia.Patient reports having increased difficulty with water and thin fluids. Patient also does not appear to be meeting hydration needs, discussed this at length as far as weighing benefits and burdens of moving forward with PEG tube placement. Patient continues to be quite resistant to this. Did review overall hydration needs, concerns regarding less than adequate fluid intake, and ways to adjust regarding current swallowing difficulties. 2. Depression. Patient currently on antidepressant Wellbutrin 150 mg daily. Expressing appropriate feelings of grief and loss and concern about impending decline. Counseling to normalize this was done as well as offered referral to counselor. Patient currently with limited financial resources, did discuss possibly splitting next visit for one-on-one counseling, remains quite supportive but concerned as well. 3. ALS. Patient is presenting with ongoing functional decline, and he needs to benefit from PT, unfortunately did not find OT helpful. Patient really enjoys stationary bike, unfortunately did not get very far with finding placed to use on island or equipment. We did discuss the continuum of care as far as home health, criteria for homebound status, and also role in his trajectory. [facility] has not made contact, will follow up again. 4. Constipation, currently controlled with titrating MiraLAX appropriately 5. Neck pain. This is related to muscle tension, most painful at bedtime and repositioning. Problem solving done around this as far as managing bed mobility. Also discussed using a neck brace for support, so patient could be outside and walk around property, he is concerned about his balance and the fatigue. 7. Caregiver fatigue. Rescare worker to start on Mondays, patient remains quite resistant, counseling regarding need to support the niece in her role as well. 8. Advanced care planning. [address] is in place, patient remains quite clear on goals at this time and not wanting ventilatory support for long-term and end-of- life would like to do hospice at home. Remains anxious that his impending decline in implications for his family. Time Spent: 60 minutes with greater than 50% of this done in counseling coordination of care , support for symptom management, counseling for depression and anticipatory guidance provided
== END 2017-07-14 11:15 | disposition home or self-care (01) ==
LOC: PC 11:14
PROVIDERS: ATTEND Nurse Practitioner Adult Health
DX: Z51.5 Encounter for palliative care (principal); F32.9 Major depressive disorder, single episode, unspecified; G12.21 Amyotrophic lateral sclerosis; M54.2 Cervicalgia; Z79.891 Long term (current) use of opiate analgesic; Z79.1 Long term (current) use of non-steroidal anti-inflammatories (NSAID); Z66 Do not resuscitate
CPT/HCPCS: 99215

== ENCOUNTER 2017-08-11 11:09 | Outpatient (CLI) | payer OTHER, MEDICAID ==
--- NOTE | 2017-08-11 20:10 | CONSULTATION NOTE ---
Palliative Care Follow Up - Referral Referring Provider: Tess Lopez Time of Visit: [id number] Referral setting: [facility] Referral Reason: ALS - Information Sources Records reviewed: Previous records reviewed History/Review of Systems obtained from: Patient Exam limitations: No limitations - History of Present Illness Update Brief HPI Update: This is a ariana 52-year-old gentleman diagnosed with ALS with bulbar symptoms and 06/2016. He was symptomatic a few months prior to this, with increased fatigue and respiratory issues. He has had ongoing decline, have been meeting with him fairly frequently over the last several months and each visit brings more functional decline, increased symptom burden, and concern for his quality of life. He has had increased difficulty with managing his neck muscles, he is wearing his brace little bit more frequently. Has lost more mobility in his shoulders and arms hands. He is completely dependent for dressing and toileting at this point in time. He has not had any significant choking or aspiration, though does spend most of his time trying to get down food and fluids, he does remain quite Resistant to moving forward with a tube feeding. He has been able to manage his pills with applesauce. He recently met with the speech therapist, and will be working on a communication tool as his speech is becoming more difficult to understand. He is less able to write, fine motor movement is changing as well, and of most significance is his respiratory demise. He has seen the drapery supervisor recently, reports his FEV was worsened though he has no numbers, and had recommended using the BiPAP during the day. Patient does have increased breathlessness now even at rest. On physical exam is unable to take a full breath, though his lungs remain clear. His ALS functional rating scale on this visit is 23/48, it is continued to decrease with each visit. He presents with increased depressive symptoms, is able to verbalize this is significant grief and loss, he is much more anxious, is having more difficulty with bed mobility and sleeping laying flat. Social History - Living Situation Living arrangement: At home Living Situation: With spouse/s.o., With family (Is taking care of 5-year-old granddaughter daughter's mother is living in the home though has significant and complex issues. They are also caring for their other granddaughter Marleny , whom is at the visit today, she is a few months old.) Medications/Allergies - Medications Home Medications: Ambulatory Orders Medication Instructions Recorded Confirmed Riluzole 50 mg PO BID 01/27/17 08/11/17 HYDROcod/ACETAM 5/325 [[place] 5/325] 5 - 10 mg PO Q4HR PRN 03/03/17 08/11/17 Meloxicam 7.5 mg PO DAILY 03/03/17 08/11/17 Sildenafil Citrate [Viagra] 100 mg PO PRN PRN 04/07/17 08/11/17 buPROPion [Wellbutrin Sr] 150 mg PO DAILY 04/07/17 08/11/17 Polyethylene Glycol 3350 [Miralax] 17 gm PO PRN PRN 06/13/17 08/11/17 Mirtazapine 7.5 mg PO DAILY 08/11/17 08/11/17 - Allergies Allergies/Adverse Reactions: Allergies Allergy/AdvReac Type Severity Reaction Status Date / Time No Known Drug Allergies Allergy Verified 01/24/17 22:50 Review of Systems - Constitutional Constitutional: reports: Weight loss (176 (5 pounds in one month)) - Eyes Eyes: reports: Vision loss, Corrective lenses - Ears, Nose & Throat Ears, Nose & Throat: reports: Other (still managing saliva/secretions; some drooling at night) - Cardiovascular Cardiovascular: reports: Decr. exercise tolerance - Respiratory Respiratory: reports: Orthopnea, SOB at rest, SOB with exertion, Other (more difficulty with breathing; easily fatigued) - Gastrointestinal Gastrointestinal: reports: Constipation (managed), Early satiety, Other (spends much of his time trying to get calories/fluids in;) - Genitourinary Genitourinary: reports: Incontinence - Musculoskeletal Musculoskeletal: reports: Muscle weakness, Other (very weak neck muscles; starting to use neck brace; arms weaker) - Integumentary Integumentary: reports: Dryness - Neurological Neurological: reports: General weakness, Focal weakness - Hematologic/Lymphatic Hematologic/Lymphatic: denies: Recurrent infections - All Other Systems All Other Systems: reports: Reviewed and negative Physical Exam - Vital Signs Pulse Rate: 96 Respiratory Rate: 20 Blood Pressure: 143/94 - Physical Exam General Appearance: positive: Mild distress, Anxious Eyes Bilateral: positive: Normal inspection ENT: positive: Other (moist oral membranes) Neck: positive: Other (muscle wasting in neck/face) Cardiovascular: positive: Regular rate & rhythm Respiratory: positive: Other (patient with difficulty taking deep breaths) Abdomen: positive: Soft Skin: positive: Pallor Extremities: positive: No pedal edema Neurologic/Psychiatric: positive: Oriented x3, Slurred/abnml speech (speech more difficult to understand; meeting with speech therapy to make communication board) Palliative Care - POLST Patient has POLST: Yes POLST Status: DNR, Selective Treatment Pain: Location (neck and shoulder discomfort; not needing pain medication at this time) Tiredness/Fatigue: Severe (7-10) Drowsiness/Sedation: Moderate (4-6) Nausea: None Depression: Severe (7-10) Anxiety: Severe (7-10) Dyspnea: Severe (7-10) Anorexia: Mild (1-3) Sleep: Variable sleep pattern Constipation: Yes, Managed Feelings of wellbeing/Perceived Quality of Life: Fair, Worsening Performance Status: Patient is needing assistance with dressing, can ambulate short distances at home. Is not going out much related to fatigue. Does spend most of his time in recliner as he is most comfortable with his head up for breathing. Still able to feed himself with modifications, is continue with PT though this is difficult, has a appointment with the psychiatrist at the end of the month. Given his rate of functional decline, though wondering what help this might be of. We did discuss at the point he is homebound can have home health evaluation for equipment needs. Though I suspect he will need a hospital bed in the next couple weeks. - Palliative Care Discussion: Was able to spend some one-on-one time with Surjit, counseling regarding his depression, he denies suicidality but is becoming more hopeless. His weighing benefits and burdens of considering the PEG tube, given the current quality of life is unclear if will access it at all. His perception is his respiratory demise will be his end-of-life event. He is feeling overwhelming loss, is unable to write in his truck anymore, he was very active and involved "can do it " dilcia. Wants to be of support and help to Corrine, but feels quite hopeless. Impression and Recommendations - Palliative Care Impression: This is a ariana 52-year-old gentleman with ALS and bulbar systems, with progressive decline. He continues present with functional decline, weight loss , and increasing symptom burden related to his depression and respiratory demise. Palliative care to continue focus on symptom management and quality of life issues providing counseling and anticipatory guidance and transition to hospice when appropriate Recommendations/Counseling Done: 1. Dysphagia. Patient continues to struggle regarding PEG tube placement, did discuss in the context of perceived decline most likely needs to make this decision over the next month. Is having weight loss, fatigues quickly with eating and drinking. To provide sample of water hydration supplement. 2. Depression. Counseling regarding pill is not going to fix situational depression,But given his persistent and pervasive symptoms, counseling provided weighing benefits and burdens of titrating up will be uterine versus adding mirtazapine. Patient is having difficulty with sleep, will add mirtazapine to see if will stimulate appetite as well. Patient to start with 7.5 mg, if he has difficult tolerating he will call. 2. Respiratory demise. Reinforced instruction regarding drapery supervisor to use BiPAP for several hours in the afternoon, secondary to fatigue with respiratory effort. I suspect this also is impacting his anxiety, agreed to trial 2-3 hours in the afternoon. Will follow up and get drapery supervisor notes to document FEV. Patient also would benefit from hospital bed and elevated head, he is having difficulty with bed mobility and positioning secondary to his upper arms and progressive neurologic disease. He does have excessive salivation secondary to his disease process and needs head of bed greater than 30 to provide for choking. Also needs appropriate positioning to be able to manage CPAP as he becomes less mobile in bed. 3. Constipation patient titrating his medications appropriately. He is having increased difficulty though with expelling stool with increased weakness. We did discuss adding bisacodyl suppository every other day to see if this helps facilitate and decrease effort. 4. Neck pain. Patient is managing on meloxicam, has not needed hydrocodone, he is using neck brace for support now. He hesitates to wear it in public because of embarrassment. 5. Caregiver fatigue. DRAKE assessment is due 09/14,Medical palliative care social media assistant has made contact and will meet with . 6. Advanced care planning. [address] is in place, patient remains quite clear goals at this time he does not want ventilatory support for long-term, would like a end-of-life to have hospice at home, continues to weigh benefits and burdens of proceeding with tube feeding. Both patient and are appropriately anxious as patient has ongoing decline. Did spend some time counseling regarding Legacy work, and processing feelings of grief and loss [id number] for hospital bed. Patient does have diagnosis of ALS, is having increased respiratory distress and difficulty, does need to have head of bed 30 or greater to facilitate ease of breathing, decrease risk and sequela of choking, as well as for positioning. Patient has limited bed mobility related to his neurologic deficits with expected ongoing decline. Patient planning to change to new primary care provider Amirah Noyola, to facilitate communication within [facility]. He also will initiate Medicare at the beginning of September. Time Spent: 45 minutes with greater than 50% of this done in counseling regarding symptom burden, depression, and anticipatory guidance
== END 2017-08-11 11:10 | disposition home or self-care (01) ==
LOC: PC 11:09
PROVIDERS: ATTEND Nurse Practitioner Adult Health
DX: Z51.5 Encounter for palliative care (principal); R13.10 Dysphagia, unspecified; F32.9 Major depressive disorder, single episode, unspecified; R06.03 Acute respiratory distress; K59.00 Constipation, unspecified; M54.2 Cervicalgia; G12.21 Amyotrophic lateral sclerosis; Z79.891 Long term (current) use of opiate analgesic; R63.4 Abnormal weight loss; Z66 Do not resuscitate
CPT/HCPCS: 99215

== ENCOUNTER 2017-09-01 22:35 | Outpatient (CLI) | payer OTHER, MEDICAID | END 2017-09-01 22:36 | disposition short-term general hospital (02) | LOC: EMS 22:35 | PROVIDERS: ATTEND Surgery | DX: R06.02 Shortness of breath (principal) | CPT/HCPCS: A0425; A0427 ==